=== PATIENT | female | born 2000 | race Caucasian/White ===

== ENCOUNTER 2020-11-29 02:17 | Emergency (ER) | payer OTHER ==
[~2020-11-29] VITALS: Ht 157.5 cm; Wt 49.4 kg
[2020-11-29] MEDS ORDERED: AMOX1TAB5 PO (03:55)
[2020-11-29] MEDS ORDERED: NAPROXEN375 MG PO (03:55)
[2020-11-29] MEDS ORDERED: INTESTINEX680 M1 PO (03:55)
[2020-12-04] MEDS ORDERED: ACETAMINOPHEN650 M2 (06:29)
== END 2020-11-29 04:03 | disposition home or self-care (01) ==
LOC: EMR PED 02:17
DX: S61.226A Laceration with foreign body of right little finger without damage to nail, initial encounter (principal); W45.8XXA Other foreign body or object entering through skin, initial encounter; Y93.89 Activity, other specified; Y92.89 Other specified places as the place of occurrence of the external cause; Y99.8 Other external cause status

== ENCOUNTER → 2020-12-06 | Emergency (ER) | payer OTHER ==
[~2020-12-06] VITALS: Ht 157.5 cm; Wt 49.4 kg
[~2020-12-06] MED LIST: ACETAMINOPHEN650 M2; AMOX1TAB5 PO; INTESTINEX680 M1 PO; NAPROXEN375 MG PO
== END | disposition home or self-care (01) ==
LOC: EMR PED 09:12 → ER 09:12 → EMR PED 10:21
DX: Z48.02 Encounter for removal of sutures (principal)